=== PATIENT | female | born 1965 | race Caucasian/White ===

== ENCOUNTER 2022-08-30 09:22 | Emergency (ER) | payer BC, SELFPAY ==
[2022-08-30 09:32] VITALS: BP 145/73; PULSE 64; RESP 16; TEMP 35.9; O2SAT 98; BMI 38.3
--- NOTE | 2022-08-30 09:54 | ED_ITS ---
HPI - Extremity Injury (Lower) General Time Seen by Provider: 09:54 Date Seen: 08/30/22 Chief Complaint: Extremity Pain/Injury, Lower Stated Complaint: left knee popped out on stairs. Time Seen by Provider: 08/30/22 09:54 Source: patient and RN notes reviewed Mode of arrival: ambulatory Limitations: no limitations History of Present Illness HPI Narrative: Patient is a very pleasant 57-year-old female who reports to me longstanding history of ankle pain, arthritis and swelling who comes to the emergency room with complaints of left knee pain. Patient notes that she usually goes up and down stairs 1 at a time. Today she was going down some stairs and holding onto the railing. She notes the sudden pain in her left knee when she was bending her knee and flexing up. Since that time she has had significant knee pain radiating to both sides of the knee. She felt like she heard a crunch when this occurred. She has not had problems with this knee in the past. She does have a history of a meniscal surgery on her right knee. She notes no increased activity or falls. Her primary is Dr. Hare at the [facility] and she sees Dr. Deangelo [place] for her feet. Movement and flexion increases her discomfort. She has not taken anything for pain. Related Data Home Medications Medication Instructions Recorded Confirmed amitriptyline 10 mg tablet 10 mg PO DAILY 08/30/22 08/30/22 diclofenac sodium 50 mg mg PO 08/30/22 tablet,delayed release metoprolol succinate 50 mg mg PO 08/30/22 tablet,extended release 24 hr omeprazole 20 mg capsule,delayed 20 mg PO DAILY 08/30/22 08/30/22 release Allergies Allergy/AdvReac Type Severity Reaction Status Date / Time codeine Allergy Mild Verified 08/30/22 09:42 Review of Systems Narrative: No recent cough cold congestion or fever. Denies recent falls. No numbness or tingling. PFSH PFSH Medical History Heart palpitations Surgical History History of knee surgery Hx of cholecystectomy Social History Smoking Status: Unknown if ever smoked How often do you have a drink containing alcohol: 2-3 times a week How many standard drinks containing alcohol do you have on a typical day: 1 or 2 AUDIT-C Alcohol total score: 3 Non-prescribed substance use: denies use Exam Narrative: Exam Narrative: Patient is alert and oriented. Somewhat tearful. Mentating normally. Heart with regular rate and rhythm and lungs are clear. Examination of the lower extremities shows possible slightly increased size of the left knee. Patella is in place and is mobile. Tenderness noted on the medial joint line to a lesser extent on the lateral joint line. Distally sensation is intact. Pulses are intact. Patient is able to move distally as well. Const: Vital Signs, click to edit/add: Vital Signs - 24 hr 08/30/22 09:32 Temperature 96.7 F L Pulse Rate [Right Pulse Oximeter] 64 Respiratory Rate 16 Blood Pressure [Ri ght Upper Arm] 145/73 H Pulse Oximetry 98 Oxygen Delivery Me thod Room Air Documenting provider has reviewed patient's vital signs: yes Course Course Hospital Course: Will have patient undergo x-ray of the left knee. Suspect a meniscal or internal injury of the knee. Vital Signs Vital signs: Initial Vital Signs Temperature 96.7 F L 08/30/22 09:32 Temperature Source Temporal Artery Scan 08/30/22 09:32 Pulse Rate 64 08/30/22 09:32 Respiratory Rate 16 08/30/22 09:32 Blood Pressure 145/73 H 08/30/22 09:32 Blood Pressure Mean 97 08/30/22 09:32 Blood Pressure Position Sitting 08/30/22 09:32 Pulse Oximetry 98 08/30/22 09:32 Oxygen Delivery Method 08/30/22 09:32 Vital Signs Temperature 96.7 F L 08/30/22 09:32 Pulse Rate 64 08/30/22 09:32 Respiratory Rate 16 08/30/22 09:32 Blood Pressure 145/73 H 08/30/22 09:32 Pulse Oximetry 98 08/30/22 09:32 Oxygen Delivery Method 08/30/22 09:32 Temperature 96.7 F L 08/30/22 09:32 Pulse Rate 64 08/30/22 09:32 Respiratory Rate 16 08/30/22 09:32 Blood Pressure 145/73 H 08/30/22 09:32 Pulse Oximetry 98 08/30/22 09:32 Oxygen Delivery Method 08/30/22 09:32 MDM - Extremity Injury (Lower) MDM Narrative Medical decision making narrative: 1. Left knee injury-suspect meniscus injury. X-ray reassuring at this time. Will place patient in knee immobilizer and she has crutches to use at home. Instructed her on bearing partial weight on her left leg for balance reasons. Recommend moving foot and ankle to prevent recurrence of DVT in the immobilized leg. Note for work for off this week as she works at [employer] in would need to be walking around. Recommend follow-up with [facility] this week for recheck. She may need MRI. 2. Chronic ankle pain-stable. No new injury. 3. Disposition- home. Ibuprofen or Tylenol as needed for discomfort. Follow-up with orthopedics. Return to the emergency room as needed. Patient does state that she lives in a home where she will have to use stairs. However, her son lives with her. He should be able to help her up the stairs. Medical Records Attestation: I reviewed the patient's medical records. Imaging Data Left knee x-ray: Attestation: I have reviewed the pertinent imaging results. My impression: Degenerative change noted. Radiologist's impression: Left knee pain Technique: ?Three views left knee Comparison: ?No comparison Findings: ?Normal alignment. No fractures no acute osseous abnormalities. Discharge Plan Discharge Clinical Impression: Injury of knee, left Patient Disposition: Home, Self-Care Condition: Unchanged Additional Instructions: Recommend use of knee immobilizer and crutches while up. You may touch your left foot to the ground and bear some weight on it. Recommend icing of the knee as well as use of ibuprofen or Tylenol as needed for discomfort. [facility] Call on Wednesday morning for appointment. Let them know you were in the emergency room today. The phone number is [phone]. Return to the ER as needed for worsening symptoms. Prescriptions: No Action metoprolol succinate 50 mg tablet extended release 24 hr PO diclofenac sodium 50 mg tablet,delayed release (DR/EC) PO omeprazole 20 mg capsule,delayed release(DR/EC) 20 mg PO DAILY amitriptyline 10 mg tablet 10 mg PO DAILY Follow Up/Referrals: Yolette Hare MD [Primary Care Provider] - Stand Alone Forms: [employer] Info Instructions
--- NOTE | 2022-08-30 09:59 | ED.NURSE ---
Pt given ice for her left knee.
--- NOTE | 2022-08-30 10:03 | CRLHL7_ITS ---
For Patients: As a result of the Cures Act, medical imaging exams and procedure reports are released immediately into your electronic medical record. You may view this report before your referring provider. If you have questions, please contact your health care provider. Indication: Left knee pain Technique: Three views left knee Comparison: No comparison Findings: Normal alignment. No fractures no acute osseous abnormalities. Dictated by Zee Abel MD @ 08/30/2022 10:53:02 AM (Electronically Signed)
== END 2022-08-30 11:19 | disposition home or self-care (01) ==
PROVIDERS: Emergency Provider Family Medicine; PCP Family Medicine
DX: M25.562 Pain in left knee (principal)
CPT/HCPCS: 73562; 99283

== ENCOUNTER 2024-07-07 13:56 | Outpatient (RCR) | payer BC, SELFPAY | END 2024-11-04 23:59 | disposition home or self-care (01) | PROVIDERS: PCP Family Medicine; Visit Provider Family Medicine | DX: M54.42 Lumbago with sciatica, left side (principal); Z51.89 Encounter for other specified aftercare | CPT/HCPCS: 97162 ==

== ENCOUNTER 2025-06-15 09:50 | Outpatient (CLI) | payer BC, SELFPAY | END 2025-06-15 09:51 | disposition home or self-care (01) | LOC: INJ CL 09:52 | PROVIDERS: PCP Family Medicine; Visit Provider Family Medicine | DX: M54.16 Radiculopathy, lumbar region (principal); M48.062 Spinal stenosis, lumbar region with neurogenic claudication | CPT/HCPCS: 64483; Q9966 ==